=== PATIENT | male | born 1990 | race Caucasian/White ===

== ENCOUNTER 2017-01-27 16:43 | Emergency (ER) | payer OTHER ==
[~2017-01-27] VITALS: Ht 180.3 cm; Wt 103.5 kg
[~2017-01-27 16:43] MED LIST: CEPH-443 PO; CIPR500T4 PO; CLOT30CR24 TOP; IBUP-1542 PO
[2017-01-27 16:57] VITALS: Ht 180.3 cm; Wt 103.5 kg
[2017-01-27 17:18] LABS: URINE BLOOD (Dip) POC Negative (NEGATIVE)
[2017-01-27] MEDS ORDERED: CLOT30CR24 TOP (17:20)
[2017-01-27] MEDS ORDERED: AZITHROMYCIN 250 MG TAB PO ONE (17:30)
[2017-01-27] MEDS ORDERED: CEFTRIAXONE 250 MG INJ IM ONE (17:30)
--- NOTE | 2017-01-27 18:21 | ERA ---
ER Documentation Chief Complaint Date/Time DATE: 01/27/17 TIME: 18:16 Chief Complaint penis pain x 2 days and dysuria HPI This is a 26-year-old male presenting with a chief complaint of pruritic penis. Patient denies dysuria, hematuria, multiple sexual partners. Patient has no sick contacts. Patient says that the symptoms that are similar have happened in the past and was relieved with shot in the pill as well as antifungal cream. Previous notes and nursing notes have been reviewed and are consistent with the history given. Patient denies any constitutional symptoms or medical conditions. Patient has no other complaints and describes no other associated manifestations per ROS All systems reviewed and are negative except as per history of present illness. Medications Home Meds Active Scripts Clotrimazole* (Clotrimazole* AF) 1% - 30 Gm Cream.gm., 1 APPLIC TOP BID for 7 Days, TUB Prov:YUDI SO PA-C 01/27/17 Clotrimazole* (Clotrimazole* AF) 1% - 30 Gm Cream.gm., 1 APPLIC TOP BID for 7 Days, TUB Prov:JOSSELINE CAMPOS NP 12/19/15 Ciprofloxacin Hcl* (Ciprofloxacin Hcl*) 500 Mg Tablet, 500 MG PO BID for 10 Days , TAB Prov:JOSSELINE CAMPOS NP 12/19/15 Ibuprofen* (Motrin*) 600 Mg Tab, 600 MG PO Q6H Y for PAIN AND OR ELEVATED TEMP, #30 Prov:PATRICIA GUZMÁN PA-C 03/26/15 Ciprofloxacin Hcl* (Ciprofloxacin Hcl*) 500 Mg Tablet, 500 MG PO BID for 7 Days , TAB Prov:JENISE WARD DO 03/09/15 Cephalexin* (Keflex*) 500 Mg Capsule, 500 MG PO QID for 10 Days, CAP Prov:YUDI YOUNG MD 02/13/15 Allergies Allergies: Coded Allergies: No Known Allergy (Unverified , 02/13/15) PMhx/Soc Medical and Surgical Hx: pt denies Medical Hx, pt denies Surgical Hx History of Surgery: No Anesthesia Reaction: No Hx Neurological Disorder: No Hx Respiratory Disorders: No Hx Cardiac Disorders: No Hx Psychiatric Problems: No Hx Miscellaneous Medical Probl: No Hx Alcohol Use: Yes (OCC.) Hx Substance Use: Yes (MARIJUANA) Hx Tobacco Use: Yes Smoking Status: Current some day smoker Physical Exam Vitals Vital Signs Date Time Temp Pulse Resp B/P Pulse Ox O2 Delivery O2 Flow Rate FiO2 01/27/17 16:57 98.0 79 18 131/61 97 Physical Exam Const: Healthy-appearing. Well-nourished. Well-developed. No acute distress. Skin: Erythematous pink minimally elevated palpable rash with satellite lesions in the saddle area, with satellite lesions, and sparing the penis and scrotum. 1 nontender papule on the left side of the glans penis. Foreskin easily retractable. No discharge noted. Ext: No edema or palpable cord. Normal movement of all extremities grossly observed. Neur: Awake, alert and oriented x3. Neurovascularly intact bilaterally. Oral: No oral edema visualized. Mucous membranes moist and pink. Head: Normocephalic, Atraumatic. Eyes: Non-injected; No discharge. EOMI and SULMA bilaterally. Ears: Normal External Ears, EACs clear, TM normal bilaterally without erythema. Nose: Normal external nose; no discharge, or sinus tenderness. Neck: No cervical lymphadenopathy, masses or goiter palpated. ~ No meningismus. Pulm: Good air movement in upper and lower respiratory tracts. No dyspnea, stridor, tripoding or drooling. Clear to auscultation bilaterally. Cardio: Regular rate and rhythm; No murmurs, gallops or rubs auscultated. No JVD grossly observed. No cyanosis. Capillary refill less than 2 seconds. Abd: Soft, non tender, non distended. No guarding, masses. Normal bowel sounds. MS: Normal motor strength, normal tone with gross examination. Back: No midline, flank or CVA tenderness. Psych: Normal Mood and Affect. Results 24 hrs Laboratory Tests Test 01/27/17 17:24 Bedside Urine pH (LAB) 6.0 Bedside Urine Protein (LAB) Negative Bedside Urine Glucose (UA) Negative Bedside Urine Ketones (LAB) Negative Bedside Urine Blood Negative Bedside Urine Nitrite (LAB) Negative Bedside Urine Leukocyte Esterase (L Negative Current Medications Medications (Trade) Dose Ordered Sig/Krystal Route PRN Reason Start Time Stop Time Status Last Admin Dose Admin Azithromycin (Zithromax) 1,000 mg ONCE ONCE PO 01/27/17 17:30 01/27/17 17:31 DC 01/27/17 17:34 Ceftriaxone Sodium (Rocephin) 250 mg ONCE ONCE IM 01/27/17 17:30 01/27/17 17:31 DC 01/27/17 17:34 Procedures/MDM Patient presents with a chief complaint of pruritic rash in the genital region. Signs and symptoms are most consistent with tinea cruris versus STI such as gonorrhea/chlamydia, syphilis. Patient received Chlortrimazole, azithromycin and ceftriaxone after his recent visit with similar symptoms. Urine dip was obtained and was unremarkable for infection. Patient will be treated with the same treatment last time as a aforementioned treatment cleared up symptoms. I have little suspicion for testicular torsion, spreading/systemic infection. I have spoke with the patient regarding their condition and future management. They have verbally responded that they understand their status and treatment plan. The patients vitals are stable, and their current condition is appropriate for discharge. The patient will be given discharge instructions with return precautions. Discharge medications: Clotrimazole cream Inpatient treatment: Azithromycin 1 g p.o. 1, ceftriaxone 250 mg IM 1 Departure Diagnosis: Primary Impression: Tinea corporis Condition: Stable Patient Instructions: Tinea Cruris, Jock Itch Additional Instructions: Follow up with your PCP within the next 1-3 days for a more thorough evaluation and a possible referral to a specialist. Return the the emergency department immediately if symptoms worsen or change. If you have any questions regarding medications, ask your pharmacist or us before you leave. If any adverse reactions occur while taking your medications, discontinue the treatment and return to the emergency department immediately. Take your medications as directed, and complete the entire course of treatment. YUDI SO PA-C Jan 27, 2017 18:21
[2017-01-31 16:10] LABS: URINE BLOOD (Dip) POC Negative (NEGATIVE)
== END 2017-01-27 17:51 | disposition home or self-care (01) ==
LOC: FTE 16:43
DX: B35.4 Tinea corporis (principal); F17.210 Nicotine dependence, cigarettes, uncomplicated
CPT/HCPCS: 81003; 87591; 96372; Z7502; J0696

== ENCOUNTER 2017-05-16 16:36 | Emergency (ER) | END 2017-05-16 17:49 | disposition home or self-care (01) | DX: L30.9 Dermatitis, unspecified (principal); L73.9 Follicular disorder, unspecified; B35.4 Tinea corporis; Z87.891 Personal history of nicotine dependence ==

== ENCOUNTER 2017-06-18 12:15 | Emergency (ER) | payer OTHER ==
[~2017-06-18] VITALS: Ht 175.3 cm; Wt 107.6 kg
[~2017-06-18 12:15] MED LIST changes: +DOXY100T20 PO; +TRIA15CR55 TOP
[2017-06-18 12:34] VITALS: Ht 175.3 cm; Wt 107.6 kg
[2017-06-18] MEDS ORDERED: LIDOCAINE 1% (MDV) 20 ML INJ SC ONE (14:30)
[2017-06-18] MEDS ORDERED: IBUP800T25 PO (15:45)
[2017-06-18] MEDS ORDERED: DIPHTH/TET/ACEL PERTUSS (ADULT) 0.5 ML VIAL IM* ONE (16:00)
--- NOTE | 2017-06-18 16:31 | ERD ---
ER Documentation Chief Complaint Chief Complaint Feels like there is "something" on left foot. Stepped on glass a recently HPI 26-year-old male complaining of possible foreign body in his left heel. Patient stated that he was while walking barefooted and house last night when there was a broken glass on the floor. He thinks that he may have stepped on a piece of broken glass. Patient stated that he was "drunk" at that time, he did not feel anything and felt asleep. This morning, he felt pain while walking at work. States that he has pain with each step. He did not remember when his last tetanus update was. ROS All systems reviewed and are negative except as per history of present illness. Medications Home Meds Active Scripts Ibuprofen* (Motrin*) 800 Mg Tab, 800 MG PO Q6H Y for PAIN AND OR ELEVATED TEMP, #30 TAB Prov:SHIRA PLEITEZ NP 06/18/17 Doxycycline Hyclate* (Doxycycline Hyclate*) 100 Mg Tablet.dr, 100 MG PO BID for 10 Days, TAB Prov:JP SIMON MD 05/16/17 Triamcinolone Acetonide (Triamcinolone Acetonide) 0.1% - 15 Gm Cream.gm., 1 APPLIC TOP BID, #1 TUB 30g, for use on hands. Prov:JP SIMON MD 05/16/17 Clotrimazole* (Clotrimazole* AF) 1% - 30 Gm Cream.gm., 1 APPLIC TOP BID for 10 Days, TUB Prov:JP SIMON MD 05/16/17 Clotrimazole* (Clotrimazole* AF) 1% - 30 Gm Cream.gm., 1 APPLIC TOP BID for 7 Days, TUB Prov:YUDI SO PA-C 01/27/17 Clotrimazole* (Clotrimazole* AF) 1% - 30 Gm Cream.gm., 1 APPLIC TOP BID for 7 Days, TUB Prov:JOSSELINE CAMPOS NP 12/19/15 Ciprofloxacin Hcl* (Ciprofloxacin Hcl*) 500 Mg Tablet, 500 MG PO BID for 10 Days , TAB Prov:JOSSELINE CAMPOS NP 12/19/15 Ibuprofen* (Motrin*) 600 Mg Tab, 600 MG PO Q6H Y for PAIN AND OR ELEVATED TEMP, #30 Prov:PATRICIA GUZMÁN PA-C 03/26/15 Ciprofloxacin Hcl* (Ciprofloxacin Hcl*) 500 Mg Tablet, 500 MG PO BID for 7 Days , TAB Prov:JENISE WARD DO 03/09/15 Cephalexin* (Keflex*) 500 Mg Capsule, 500 MG PO QID for 10 Days, CAP Prov:YUDI YOUNG MD 02/13/15 Allergies Allergies: Coded Allergies: No Known Allergy (Unverified , 02/13/15) PMhx/Soc History of Surgery: No Anesthesia Reaction: No Hx Neurological Disorder: No Hx Respiratory Disorders: No Hx Cardiac Disorders: No Hx Psychiatric Problems: No Hx Miscellaneous Medical Probl: No Hx Alcohol Use: Yes (OCC.) Hx Substance Use: Yes (MARIJUANA) Hx Tobacco Use: Yes Smoking Status: Never smoker Physical Exam Vitals Vital Signs Date Time Temp Pulse Resp B/P Pulse Ox O2 Delivery O2 Flow Rate FiO2 06/18/17 12:34 97.7 94 18 107/53 97 Physical Exam General: Well-developed, well-nourished, conscious and coherent, in no distress Skin: Warm and dry without rash, good texture and turgor. A 4 mm long incision noted the sole of the left foot, at the left heel. Tender to palpation. Head: Normocephalic without evidence of trauma Eyes: Sclera and conjunctivae normal; pupils equal, round, and reactive to light; extraocular movements are intact Chest: Normal AP diameter. Good expansion without retractions. Nontender. Lungs are clear to auscultate bilaterally with good tidal volume Heart: Regular rate and rhythm. No murmur, rub, or gallops heard Extremities: Full range of motion. Good strength bilaterally. No clubbing, cyanosis, or edema. Peripheral pulses are intact. Sensation intact Neuro: Alert and oriented 4, GCS 15. Cranial nerves grossly intact. Motor and sensory exams nonfocal. Moves all extremities. Speech clear. Gait normal Results 24 hrs Current Medications Medications (Trade) Dose Ordered Sig/Krystal Route PRN Reason Start Time Stop Time Status Last Admin Dose Admin Lidocaine (Xylocaine 1% (Mdv) 20 ml) 20 ml ONCE ONCE SC 06/18/17 14:30 06/18/17 14:31 DC Diphtheria/ Tetanus/Acell Pertussis (Adacel) 0.5 ml ONCE ONCE IM* 06/18/17 16:00 06/18/17 16:00 DC 06/18/17 15:52 PROCEDURE: XR Left foot. CLINICAL INDICATION: Left foot pain, evaluate for foreign body TECHNIQUE: Three views of the left foot were obtained. COMPARISON: No prior studies are available for comparison. FINDINGS: There is no acute fracture or dislocation. Alignment is normal. Joint spaces are preserved. There is a 3 mm radiopaque foreign body seen within the superficial soft tissues of the heel at the level of the posterior calcaneal tuberosity on the oblique image. IMPRESSION: 1. No radiographic evidence of acute osseous abnormality. 2. Ate 3 mm radiopaque foreign body within the superficial soft tissues of the heel at the level of the posterior calcaneal tuberosity, seen best on the lateral image. RPTAT: UU Signed By: Alec Lowry M.d 06/18/2017 2:21:56 PM Procedures/MDM 26-year-old male present ED was possible foreign body to his left heel. X-ray of the left foot was obtained, she showed a superficial 3 mm radiopaque foreign body at the left heel. Procedure note: Foreign body removal Verbal consent obtained for removal of retained foreign body. The area was prepped with Betadine. Lidocaine 1% was infiltrated for local anesthesia. After appropriate anesthesia, incision was enlarged made using #11 blade. A 2 mm x 3 mm piece of glass shard was removed. The wound was then cleaned and dressed. Patient tolerated procedure well. Patient given Tdap today in the ED. Patient appears well, stable for discharge and outpatient management. Medical decision making shared with patient and family. Education provided to patient and family. Patient and family expressed understanding of the plan. Medications on discharge: Ibuprofen. Follow-up: Return to eating 2 days for wound check. Disclaimer: Inadvertent spelling and grammatical errors are likely due to EHR/ dictation software use and do not reflect on the overall quality of patient care. Also, please note that the electronic time recorded on this note does not necessarily reflect the actual time of the patient encounter. Departure Diagnosis: Primary Impression: Retained foreign body Condition: Stable Patient Instructions: Foreign Body, Soft Tissue (Removed) Referrals: [facility] (PCP) Additional Instructions: Return to this facility in 2 DAYS for a follow-up exam.Return sooner if your condition worsens. SHIRA PLEITEZ NP Jun 18, 2017 16:31
--- NOTE | 2017-06-18 16:55 | RADRPT ---
PROCEDURE: XR Left foot. CLINICAL INDICATION: Left foot pain, evaluate for foreign body TECHNIQUE: Three views of the left foot were obtained. COMPARISON: No prior studies are available for comparison. FINDINGS: There is no acute fracture or dislocation. Alignment is normal. Joint spaces are preserved. There is a 3 mm radiopaque foreign body seen within the superficial soft tissues of the heel at the level of the posterior calcaneal tuberosity on the oblique image. IMPRESSION: 1. No radiographic evidence of acute osseous abnormality. 2. Ate 3 mm radiopaque foreign body within the superficial soft tissues of the heel at the level of the posterior calcaneal tuberosity, seen best on the lateral image. RPTAT: UU .Alec Lowry MD, MD Date Time Electronically viewed and signed by .Alec Lowry MD, on 06/18/2017 14:21 .K/
== END 2017-06-18 15:56 | disposition home or self-care (01) ==
LOC: FTE 12:15
DX: S90.852A Superficial foreign body, left foot, initial encounter (principal); W25.XXXA Contact with sharp glass, initial encounter; Y92.009 Unspecified place in unspecified non-institutional (private) residence as the place of occurrence of the external cause; Z23 Encounter for immunization
CPT/HCPCS: 28190; 73630; 90471; Z7502; Z7610